=== PATIENT | female | born 1990 | race Caucasian/White ===

== ENCOUNTER 2022-08-22 19:30 | Emergency (ER) | payer SELFPAY ==
[2022-08-22] MEDS ORDERED: Sodium Chloride 0.9% 2.5 ML Syringe FLUSH PRN (19:42)
[2022-08-22] MEDS ORDERED: Aspirin 81 MG Tab.Chew PO ONE (19:42)
[2022-08-22] MEDS ORDERED: Sodium Chloride 0.9% 20 ML SDV IV PRN (19:42)
[2022-08-22] MEDS ORDERED: Sodium Chloride 0.9% 10 ML Syringe FLUSH PRN (19:42)
[2022-08-22 19:52] LABS: BASOPHILS PERCENT AUTO 0.2 % (0.0-1.5); EOSINOPHILS ABSOLUTE AUTO 0.2 K/uL (0.0-0.7); EOSINOPHILS PERCENT AUTO 1.8 % (0.0-7.0); HEMATOCRIT 42.9 % (36.0-46.0); HEMOGLOBIN 15.1 g/dL (12.0-16.0); LYMPHOCYTES PERCENT AUTO 14.7 % (16.0-40.0); MEAN CORPUSCULAR HEMOGLOBIN 31.7 pg (27.0-32.0); MEAN CORPUSCULAR HGB CONC 35.2 g/dL (31.0-37.0); MEAN CORPUSCULAR VOLUME 90.1 fL (80.0-98.0); MONOCYTES ABSOLUTE AUTO 1.1 K/uL (0.0-0.8); MONOCYTES PERCENT AUTO 8.2 % (0.0-15.0); NEUTROPHILS ABSOLUTE AUTO 10.3 K/uL (1.4-5.7); NEUTROPHILS PERCENT AUTO 75.1 % (48.0-80.0); NRBC ABSOLUTE 0 K/uL; PLATELET COUNT,PLT 297 K/uL (150-400); RED BLOOD CELL COUNT 4.76 M/uL (4.30-5.90); WHITE BLOOD CELL COUNT,WBC 13.69 K/uL (4.0-11.0)
[2022-08-22] MEDS: Nitroglycerin 0.4 MG Tab.SL SL PRN ×2 (19:55→20:08)
[2022-08-22 20:09] LABS: INR 1.02 (0.86-1.11); PTT,PARTIAL THROMBOPLSTIN TIME 31.6 SEC (23.9-30.7)
[2022-08-22 20:16] LABS: CALCIUM 8.8 mg/dL (8.5-10.1); CARBON DIOXIDE,CO2 24.5 mmol/L (21.0-32.0); CREATININE 0.7 mg/dL (0.6-1.0); EST CRCL DRUG DOSING (CG) 96.33 mL/min; POTASSIUM,K 3.7 mmol/L (3.5-5.1)
== END 2022-08-22 23:57 | disposition home or self-care (01) ==
LOC: MW.ED 19:30
DX: R07.2 Precordial pain (principal); A69.1 Other Vincent's infections; E78.5 Hyperlipidemia, unspecified; Z79.82 Long term (current) use of aspirin; Z79.899 Other long term (current) drug therapy
CPT/HCPCS: 36415; 71045; 80048; 83735; 84484; 85025; 85379; 85610; 85730; 93005; 99285; A9270; J3490; 93010; 99283